=== PATIENT | male | born 1970 | race Caucasian/White ===

== ENCOUNTER 2023-01-09 06:48 | Day surgery (SDC) | payer BC ==
[~2023-01-09 06:48] MED LIST: Lactated Ringers 1,000 ML IV SCH
[2023-01-09] MEDS ORDERED: Lidocaine 2% 5 ML SDV ONE (07:23)
[2023-01-09] MEDS ORDERED: Propofol 200 MG/20 ML SDV ONE (07:24)
[2023-01-09] MEDS ORDERED: fentaNYL 100 MCG/2 ML SDV ONE (07:24)
== END 2023-01-09 09:28 | disposition home or self-care (01) ==
LOC: MW.SDS 06:48
PROVIDERS: ATTEND Surgery
DX: Z12.11 Encounter for screening for malignant neoplasm of colon (principal); D12.0 Benign neoplasm of cecum; D12.3 Benign neoplasm of transverse colon; D12.6 Benign neoplasm of colon, unspecified; K64.8 Other hemorrhoids; F41.9 Anxiety disorder, unspecified; F32.9 Major depressive disorder, single episode, unspecified; F17.210 Nicotine dependence, cigarettes, uncomplicated; Z79.899 Other long term (current) drug therapy
CPT/HCPCS: 45380; 45385; J2704; J3010; J7120; J3490